=== PATIENT | female | born 1955 | race Caucasian/White ===

== ENCOUNTER 2025-06-18 11:02 | Emergency (ER) | payer MEDICARE, OTHER, SELFPAY ==
[2025-06-18 11:03] VITALS: BP 143/77; PULSE 83; RESP 16; TEMP 36.6; O2SAT 97
--- NOTE | 2025-06-18 11:15 | ED.VIS.LOWEX ---
HPI History of Present Illness Chief Complaint: Lower Extremity Injury Informant: patient and spouse/S.O. Narrative Narrative: Patient is a 70-year-old female presenting with left knee, ankle, and leg pain following a fall yesterday. - Patient reports falling yesterday, resulting in pain in the knee, back of the leg, and ankle. - Describes the fall as a slide followed by turning onto her side, hitting the ground hard. - Unable to bear weight on the affected leg since the fall. - Denies injuries to other parts of the body. - No numbness in the affected leg. - Denies recent illness, cold, or flu symptoms; up to date on vaccinations. - Uses a walker with a seat for mobility at home. PFSH PFSH Medical History no medical history Allergy/AdvReac Type Severity Reaction Status Date / Time No Known Allergies Allergy Verified 06/18/25 11:04 Family History no significant family his Surgical History no surgical history Social History Smoking Status: Never smoker ROS ROS ED Constitutional Constitutional ED: Denies chills or fever(s) Musculoskeletal Musculoskeletal: Reports extremity pain; Denies neck pain Integumentary Denies Abrasions, rash or wounds Neurologic Neurologic: Denies paresthesias or weakness EXAM Physical Exam Const Vital Signs: 06/18/25 11:03 Temperature 98 F Temperature Source Temporal Pulse Rate 83 Respiratory Rate 16 Blood Pressure 143/77 H Blood Pressure Mean 99 Pulse Ox 97 Oxygen Delivery Method Room Air Positive well nourished and well developed General Appearance ED: well developed and NAD Neck full ROM and supple Chest Wall inspection of chest normal and palpation of chest normal Resp normal respiratory effort and clear to auscultation bilaterally Cardio regular rate and regular rhythm GI non-tender and non-distended GI Narrative: Pelvis stable to AP compression, nontender Auscultation: normoactive bowel sounds Palpation: soft Back/Spine normal ROM and normal to inspection Cervical Spine: Negative for cervical spine tenderness Thoracic Spine / Upper Back: Negative for thoracic spinal tenderness Lumbar Spine / Lower Back: Negative for lumbar spinal tenderness Extremity Extremity Narrative: Mild diffuse tenderness throughout the left lower leg from the lateral aspect of the knee on down to the lateral malleolus. Medial malleolus is nontender. There are no deformities. The lateral malleolus is swollen but there are no other objective signs of trauma. Limited range of motion of the ankle but with assistance she can range the knee fully extensor mechanism is intact and all ligaments are stable short endpoints and no significant discomfort in the knee with stressing and there is no effusion. Base of the fifth metatarsal is nontender as are rest of the areas of the foot. 2+/4 dorsalis pedis pulse. Neuro oriented x3, no focal motor deficits and no sensory deficits noted Sensorium / Orientation: alert Psych mental status grossly normal and thought process normal Skin no wounds Rashes: no rashes MDM MDM MDM Narrative Medical decision making narrative: Three-view x-ray series of the left tibia/fibula were obtained, radiology called these negative but I disagree. There appears to be a nondisplaced fracture proximal fibula shaft. The patient is indeed tender here. I discussed with orthopedics Dr. Roberson, who advises make the patient nonweightbearing and placed in her splint which is done and having her call for an appointment to be seen tomorrow for further evaluation and possible stress views to rule out Maisonneuve fracture. Discussed with patient , she was offered inpatient and rehab but they declined she has a walker with a seat and he can help care for her at home. Radiography Diagnostic Testing: Clinical Impression(s) from Imaging Studies Tibia/Fibula X-Ray 06/18/25 11:23 IMPRESSION: No acute osseous abnormalities. Reading Location: [facility] Management Discussion w/another healthcare provider: Legal Service Specialist (Alexa Roberson) Procedures Lower Extremity Splints Lower Extremity Splint: Orthoglass (Posterior; neurovascularly intact distally after placement tolerated well) Splint Fabrication: Fabricated Location: Left Discharge Plan Triage Chief Complaint: Lower Extremity Injury ED Provider: Ricardo Mendoza Dx/Rx/DC Orders Clinical Impression: Nondisplaced fracture of shaft of left fibula, Left ankle injury, Fall from slipping Instructions: ED Leg Fracture, ED Fiberglass Splint Care Referrals: Sean Roberson DO [Med Staff - Active Staff, [facility]] - 1 Day Referral Note: call today for appt to be seen tomorrow Activity Restrictions/Additional Instructions: No weightbearing on your left lower extremity until you are seen by orthopedics tomorrow and told otherwise. Make sure you call for an appointment to be seen tomorrow. Print Language: Maltese Disposition Disposition: Home, Self Care
--- NOTE | 2025-06-18 11:23 | RAD_ITS ---
PROCEDURE: TIBIA FIBULA 2 VIEWS 06/18/2025 REASON FOR EXAM: PAIN/INJURY TECHNIQUE: Procedure Code: RADTF Modality: DX Procedure: TIBIA FIBULA 2 VIEWS COMPARISON: None. FINDINGS: No acute bony abnormalities. No soft tissue abnormalities. No knee effusion. RAD/Tibia & Fibula 2 Views IMPRESSION: No acute osseous abnormalities. Reading Location: [id number]
[2025-06-18 14:09] VITALS: BP 142/70; PULSE 85; RESP 22; TEMP 36.9; O2SAT 96
== END 2025-06-18 14:06 | disposition home or self-care (01) ==
PROVIDERS: Emergency Provider Emergency Medicine; Visit Provider Emergency Medicine
DX: S82.402A Unspecified fracture of shaft of left fibula, initial encounter for closed fracture (principal); W19.XXXA Unspecified fall, initial encounter
CPT/HCPCS: 29515; 73590; 96372; 99282